=== PATIENT | male | born 1965 | race Caucasian/White ===

== ENCOUNTER 2016-10-30 16:43 | Emergency (ER) | payer BC ==
[~2016-10-30] VITALS: Ht 185.4 cm; Wt 99.0 kg
[2016-10-30 16:45] VITALS: BP 161/101; PULSE 94; RESP 18; TEMP 98.6; O2SAT 98
--- NOTE | 2016-10-30 16:56 | PD ---
Physical Exam Date Seen by Provider: Oct 30, 2016 Time Seen by Provider: 16:48 Narrative Pt presents with nausea, constipation, burning/sore throat, sore rectum. He reports random body aches for the last few months. Pt has had an upper and lower endoscopy a few weeks ago. Today worse back pain reporting the pain is an 8/10. He appears anxious and fixated on his complaints which per his report have been evaluated in the outpatient setting. VSS. Data Data Last Documented VS Vital Signs Date Time Temp Pulse Resp B/P Pulse Ox O2 Delivery O2 Flow Rate FiO2 10/30/16 16:45 98.6 94 18 161/101 98 MDM Supervised Visit with THERESA: Danisha Cleary Oct 30, 2016 16:55
[2016-10-30] MEDS ORDERED: SODIUM CHLOR 0.9% 1000 ML INJ 1,000 ML IV SCH (17:28)
[2016-10-30] MEDS ORDERED: KETOROLAC TROMETHAMINE 30 MG/ML (IVP) VIAL IVP ONE (17:30)
[2016-10-30] MEDS ORDERED: SODIUM CHLORIDE 0.9% FLUSH 10 ML FLUSH IV FLUSH PRN (17:30)
[2016-10-30] MEDS ORDERED: ONDANSETRON HCL 4 MG/2 ML VIAL IVP ONE (17:30)
[2016-10-30 17:56] VITALS: O2SAT 99
[2016-10-30 18:15] LABS: AUTOMATED NEUTROPHIL # 3.9 TH/MM3 (1.8-7.7); BASOPHIL # 0.1 TH/MM3 (0-0.2); BASOPHIL % 0.7 % (0.0-2.0); EOSINOPHIL # 0.1 TH/MM3 (0-0.4); EOSINOPHIL % 1.6 % (0.0-4.0); HEMO FLAGS DIFF FINAL; LYMPH % 34.3 % (9.0-44.0); LYMPHOCYTE # 2.6 TH/MM3 (1.0-4.8); MEAN CORPUSCULAR HEMOGLOBIN 30.6 PG (27.0-34.0); MEAN CORPUSCULAR HGB CONC 34.4 % (32.0-36.0); MONO % 11.7 % (0.0-8.0); NEUT % 51.7 % (16.0-70.0); PLATELET COUNT 309 TH/MM3 (150-450); RED BLOOD COUNT 5.06 MIL/MM3 (4.50-5.90); RED CELL DISTRIBUTION WIDTH 12.7 % (11.6-17.2); WHITE BLOOD COUNT 7.5 TH/MM3 (4.0-11.0)
--- NOTE | 2016-10-30 18:44 | PD ---
HPI Chief Complaint: Medical Clearance Time Seen by Provider: 17:20 Travel History International Travel<30 days: No Contact w/Intl Traveler<30days: No Traveled to known affect area: No History of Present Illness HPI Patient is a 51-year-old male presents emergency Department with multiple complaints. His chief complaint is right upper quadrant abdominal pain. Patient states his been going on off for approximately the past year and he is being worked up by his primary care physician for it. He states again fairly severe yesterday afternoon is been associated with some nausea without vomiting. Denies any diarrhea or blood in the stool. Patient denies any abdominal surgeries. Cannot identify any alleviating or exacerbating factors and denies any fevers. Patient has a secondary complaint of his rectum having some pain. He was told that he did have some hemorrhoids in the past. Denies any blood in the stool or melena. He states that typically when his bottom hurts him his throat becomes sore as well. He states his symptoms been going on and off for the past year. She has a tertiary complaint of body aches all over his body which been going on for more than a year. Denies any fever denies any injuries. [facility] Past Medical History Diminished Hearing: No Tetanus Vaccination: Unknown Influenza Vaccination: Yes Social History Alcohol Use: No Tobacco Use: No Substance Use: No Allergies-Medications (Allergen,Severity, Reaction): Coded Allergies: Penicillin (Verified Allergy, Unknown, 10/30/16) Reported Meds & Prescriptions Reported Meds & Active Scripts Active Omeprazole 20 Mg Tab 20 Mg PO DAILY Review of Systems Except as stated in HPI: all other systems reviewed are Neg Physical Exam Narrative GENERAL: Well-developed well-nourished appears mildly anxious SKIN: Focused skin assessment warm/dry. HEAD: Atraumatic. Normocephalic. EYES: Pupils equal and round. No scleral icterus. No injection or drainage. ENT: No nasal bleeding or discharge. Mucous membranes pink and moist. NECK: Trachea midline. No JVD. CARDIOVASCULAR: Regular rate and rhythm. No murmur appreciated. RESPIRATORY: No accessory muscle use. Clear to auscultation. Breath sounds equal bilaterally. GASTROINTESTINAL: Abdomen soft, minimally tender in the right upper quadrant, nondistended. Hepatic and splenic margins not palpable. MUSCULOSKELETAL: No obvious deformities. No clubbing. No cyanosis. No edema. NEUROLOGICAL: Awake and alert. No obvious cranial nerve deficits. Motor grossly within normal limits. Normal speech. PSYCHIATRIC: Appropriate mood and mildly anxious affect; insight and judgment normal. Data Data Last Documented VS Vital Signs Date Time Temp Pulse Resp B/P Pulse Ox O2 Delivery O2 Flow Rate FiO2 10/30/16 17:56 99 10/30/16 17:11 16 10/30/16 16:45 98.6 94 161/101 Orders Complete Blood Count With Diff (10/30/16 17:28) Comprehensive Metabolic Panel (10/30/16 17:28) Lipase (10/30/16 17:28) Urinalysis - C+S If Indicated (10/30/16 17:28) Us Abdomen Gallbladder (10/30/16 ) Iv Access Insert/Monitor (10/30/16 17:28) Ecg Monitoring (10/30/16 17:28) Oximetry (10/30/16 17:28) Ondansetron Inj (Zofran Inj) (10/30/16 17:30) Sodium Chlor 0.9% 1000 Ml Inj (Ns 1000 M (10/30/16 17:28) Sodium Chloride 0.9% Flush (Ns Flush) (10/30/16 17:30) Ketorolac Inj (Toradol Inj) (10/30/16 17:30) Monoscreen (10/30/16 18:44) Chest, Single Ap (10/30/16 ) Labs Laboratory Tests Test 10/30/16 10/30/16 10/30/16 17:45 19:00 19:14 White Blood Count 7.5 TH/MM3 Red Blood Count 5.06 MIL/MM3 Hemoglobin 15.5 GM/DL Hematocrit 45.0 % Mean Corpuscular Volume 89.0 FL Mean Corpuscular Hemoglobin 30.6 PG Mean Corpuscular Hemoglobin 34.4 % Concent Red Cell Distribution Width 12.7 % Platelet Count 309 TH/MM3 Mean Platelet Volume 7.2 FL Neutrophils (%) (Auto) 51.7 % Lymphocytes (%) (Auto) 34.3 % Monocytes (%) (Auto) 11.7 % Eosinophils (%) (Auto) 1.6 % Basophils (%) (Auto) 0.7 % Neutrophils # (Auto) 3.9 TH/MM3 Lymphocytes # (Auto) 2.6 TH/MM3 Monocytes # (Auto) 0.9 TH/MM3 Eosinophils # (Auto) 0.1 TH/MM3 Basophils # (Auto) 0.1 TH/MM3 CBC Comment DIFF FINAL Differential Comment Sodium Level 137 MEQ/L Potassium Level 4.3 MEQ/L Chloride Level 101 MEQ/L Carbon Dioxide Level 25.8 MEQ/L Anion Gap 10 MEQ/L Blood Urea Nitrogen 20 MG/DL Creatinine 1.09 MG/DL Estimat Glomerular Filtration 71 ML/MIN Rate Random Glucose 73 MG/DL Calcium Level 9.5 MG/DL Total Bilirubin 1.0 MG/DL Aspartate Amino Transf 37 U/L (AST/SGOT) Alanine Aminotransferase 42 U/L (ALT/SGPT) Alkaline Phosphatase 72 U/L Total Protein 7.5 GM/DL Albumin 3.8 GM/DL Lipase 113 U/L Monoscreen NEG Urine Color YELLOW Urine Turbidity CLEAR Urine pH 5.0 Urine Specific [place] 1.020 Urine Protein NEG mg/dL Urine Glucose (UA) NEG mg/dL Urine Ketones NEG mg/dL Urine Occult Blood NEG Urine Nitrite NEG Urine Bilirubin NEG Urine Urobilinogen LESS THAN 2.0 MG/DL Urine Leukocyte Esterase NEG Urine WBC 1 /hpf Microscopic Urinalysis Comment CULT NOT INDICATED MDM Medical Decision Making Medical Screen Exam Complete: Yes Emergency Medical Condition: Yes Differential Diagnosis Epigastric pain, pancreatitis, cholecystitis, gastritis, Narrative Course Patient 51-year-old male presents with epigastric pain and right upper quadrant pain. He has multiple other complaints as outlined in the history of present illness, these all appear to be chronic. I'm getting ready to discharge him he states he is also been having a cough and wonders if he has bronchitis. His lungs were re-auscultated and are clear. A chest x-ray was obtained which is negative. His laboratory workup was significant for normal CBC but with monocyte predominance in the differential. A Monospot test was obtained and negative. UA negative, chemistry negative. No indication for CT abdomen at this time as patient has benign abdomen. The right upper quadrant ultrasound was obtained which was unremarkable. Patient is stable for discharge. There is no obvious cause for his abdominal pain at this time and this was reiterated to him that he follow up with his primary care provider and he was given a referral to a [facility]orer [employer] [facility] [employer]. Discussed with him return to ED criteria and symptomatic management. Diagnosis Primary Impression: RUQ abdominal pain Referrals: Prem Guadarrama MD Additional Instructions: Call your regular physician tomorrow for a follow-up appointment. Med/Other Pt SpecificInfo: Prescription(s) given Scripts Omeprazole 20 Mg Tab20 Mg PO DAILY #30 TAB Ref 0 Prov:Francisco Parrish MD 10/30/16 Disposition: 01 DISCHARGE HOME Condition: Stable Francisco Parrish MD Oct 30, 2016 18:44
[2016-10-30 18:45] LABS: ALKALINE PHOSPHATASE 72 U/L (45-117); ALT (GPT) 42 U/L (12-78); ANION GAP 10 MEQ/L (5-15); AST (GOT) 37 U/L (15-37); BICARBONATE 25.8 MEQ/L (21.0-32.0); BLOOD UREA NITROGEN 20 MG/DL (7-18); CHLORIDE 101 MEQ/L (98-107); GLOMERULAR FILTRATION RATE 71 ML/MIN (>89); SODIUM (NA) 137 MEQ/L (136-145)
[2016-10-30 18:46] LABS: POTASSIUM 4.3 MEQ/L (3.5-5.1)
[2016-10-30 19:43] LABS: BLOOD, URINE NEG (NEG); GLUCOSE,URINE NEG (NEG); KETONE, URINE NEG (NEG); NITRITE,URINE NEG (NEG); URINE COLOR YELLOW (YELLW/STRAW)
[2016-10-30 19:44] LABS: COMMENT (UR) CULT NOT INDICATED; CULTURE IF INDICATED CULT NOT INDICATED
--- NOTE | 2016-10-30 19:46 | RADRPT ---
EXAM DATE/TIME: 10/30/2016 18:27 [facility] COMPARISON: No previous studies available for comparison. INDICATIONS : Right upper quadrant pain. MEDICAL HISTORY : Nausea. Vomiting. Abdominal pain. SURGICAL HISTORY : None. ENCOUNTER: Initial ACUITY: 1 day PAIN SCORE: 10 LOCATION: Right upper quadrant MEASUREMENTS: LIVER: 17.7 cm length COMMON DUCT: 4 mm RIGHT KIDNEY: 11.9 x 6.3 x 4.0 cm FINDINGS: LIVER: Normal echotexture without focal lesion or ductal dilatation. COMMON DUCT: No intraluminal mass or stone visualized. GALLBLADDER: Contains no stones, demonstrates no wall thickening or pericholecystic fluid. PANCREAS: The visualized portions are within normal limits. RIGHT KIDNEY: No evidence of hydronephrosis, stone, or mass. CONCLUSION: Unremarkable right upper quadrant. Sonu Wells MD on October 30, 2016 at 19:37 Board Certified Radiologist. This report was verified electronically.
--- NOTE | 2016-10-30 20:18 | RADRPT ---
EXAM DATE/TIME: 10/30/2016 20:04 [facility] COMPARISON: No previous studies available for comparison. INDICATIONS : Cough and shortness of breath for the past few days. MEDICAL HISTORY : None. SURGICAL HISTORY : None. ENCOUNTER: Initial ACUITY: 4 - 6 days PAIN SCORE: 3/10 LOCATION: Bilateral chest FINDINGS: A single view of the chest demonstrates the lungs to be symmetrically aerated without evidence of mas s, infiltrate or effusion. The cardiomediastinal contours are unremarkable. Osseous structures are intact. CONCLUSION: No acute disease. Sonu Wells MD on October 30, 2016 at 20:16 Board Certified Radiologist. This report was verified electronically.
[2016-10-30] MEDS ORDERED: OMEP20TA PO (20:40)
== END 2016-10-30 21:01 | disposition home or self-care (01) ==
LOC: NEPD 16:43
DX: R10.11 Right upper quadrant pain (principal); R05 Cough
CPT/HCPCS: 71010; 76705; 80053; 81001; 83690; 85025; 86308; 96361; 96374; 96375; 99284; J1885; J2405; J7030